=== PATIENT | male | born 1960 | race African-American/Black ===

== ENCOUNTER 2024-04-15 11:35 | Inpatient (IN) | payer OTHER ==
[2024-04-15 11:59] VITALS: BMI 22.4
[2024-04-15] MEDS ORDERED: methaDONE HCL 10 MG TABLET (FOR DETOX USE ONLY) PO PRN (12:10)
[2024-04-15] MEDS ORDERED: METHOCARBAMOL 500 MG TABLET PO PRN (12:17)
[2024-04-15] MEDS ORDERED: P-EPHED 60MG/TRIPROLIDI 2.5MG TABLET PO PRN (12:17)
[2024-04-15] MEDS ORDERED: IBUPROFEN 400 MG TABLET (FP) PO PRN (12:17)
[2024-04-15] MEDS ORDERED: guaiFENesin 600 MG TABLET.ER (FP) PO PRN (12:17)
[2024-04-15] MEDS ORDERED: BISMUTH SUBSALICYLATE 262 MG/15 ML BTL PO PRN (12:17)
[2024-04-15] MEDS ORDERED: MAG HYDROX/AL HYDROX/SIMETH 30 ML UNIT-DOSE CUP PO PRN (12:17)
[2024-04-15] MEDS ORDERED: ACETAMINOPHEN 325 MG TABLET (FP) PO PRN (12:17)
[2024-04-15] MEDS ORDERED: BENZOCAINE/MENTHOL (CHLORASEPTIC ) LOZENGE MM PRN (12:17)
[2024-04-15] MEDS ORDERED: MAGNESIUM HYDROX 2400MG/30ML ORAL SUSPENSION 30 ML CUP PO PRN (12:17)
[2024-04-15] MEDS ORDERED: IBUPROFEN 600 MG TABLET (FP) PO PRN (12:17)
[2024-04-15] MEDS ORDERED: LOPERAMIDE HCL 2 MG CAPSULE PO PRN (12:17)
[2024-04-15] MEDS ORDERED: ONDANSETRON *ODT* 4 MG TABLET SL PRN (12:17)
[2024-04-15] MEDS ORDERED: NALOXONE (NARCAN) HCL 4 MG/0.1 ML SPRAY NS PRN (12:17)
[2024-04-15] MEDS ORDERED: POLYETHYLENE GLYCOL (HEALTHYLAX) 3350 17 GM PACKET PO PRN (12:17)
[2024-04-15] MEDS ORDERED: BENZONATATE 200 MG CAPSULE PO PRN (12:17)
[2024-04-15] MEDS ORDERED: methaDONE HCL 10 MG TABLET (FOR DETOX USE ONLY) ONE (14:14)
[2024-04-15] MEDS: methaDONE HCL 10 MG TABLET (FOR DETOX USE ONLY) PO ONE (14:17)
[2024-04-15] MEDS ORDERED: cloNIDine HCL 0.1 MG TABLET PO PRN (15:48)
[2024-04-15] MEDS: ASPIRIN COATED 81 MG TABLET.EC PO SCH (15:57)
[2024-04-15] MEDS: cloNIDine HCL 0.1 MG TABLET PO PRN (15:58)
[2024-04-15] MEDS: DICYCLOMINE HCL 10 MG CAPSULE PO PRN (16:04)
[2024-04-15] MEDS: metFORMIN HCL 500 MG TABLET (FP) PO SCH (17:08)
[2024-04-15] MEDS: MAGNESIUM OXIDE 400 MG TABLET (FP) PO SCH (21:16)
[2024-04-15] MEDS: DOXAZOSIN MESYLATE 2 MG TABLET PO SCH (21:16)
[2024-04-15] MEDS: THIAMINE 100 MG TABLET PO SCH (21:17)
[2024-04-15] MEDS: MELATONIN 5 MG TABLETS PO SCH (21:17)
[2024-04-15] MEDS: DOCUSATE SODIUM 100 MG CAPSULE (FP) PO SCH (21:17)
[2024-04-15] MEDS: CARVEDILOL 6.25 MG TABLET (FP) PO SCH (21:17)
[2024-04-15] MEDS: levETIRAcetam 500 MG TABLET (FP) PO SCH (21:17)
[2024-04-15] MEDS ORDERED: LORATADINE 10 MG TABLET PO PRN (22:50)
[2024-04-15] MEDS ORDERED: TACROLIMUS 0.5 MG CAPSULE PO SCH (22:51)
[2024-04-15] MEDS: TACROLIMUS 0.5 MG CAPSULE PO SCH ×2 (23:06→23:09)
[2024-04-16 10:08] LABS: HEMOGLOBIN 14.3 GM/dL (11.7-16.9); MCH 29.6 pg (25.7-33.7); MEAN CELL VOLUME 87.1 fl (80-96); MEAN PLT VOLUME 7.6 fl (7.5-11.1); PLATELET COUNT 219 10^3/uL (134-434); RBC 4.83 M/mm3 (4.00-5.60); RDW 13.1 % (11.9-15.9); WHITE BLOOD COUNT 5.5 K/mm3 (4.0-10.0)
[2024-04-16] MEDS: PRENATAL VITAMINS W/ FOLIC ACID TABLET (FP) PO SCH (10:28)
[2024-04-16] MEDS: amLODIPine BESYLATE 10 MG TABLET (FP) PO SCH (10:29)
[2024-04-16 11:57] LABS: POTASSIUM 3.7 mmol/L (3.5-5.1)
[2024-04-16 12:04] LABS: ALBUMIN 3.3 g/dl (3.4-5.0); BLOOD UREA NITROGEN 19.9 mg/dL (7-18); CALCIUM 9.1 mg/dL (8.5-10.1)
[2024-04-16 12:07] LABS: CREATININE 1.3 mg/dL (0.55-1.3)
[2024-04-16 12:09] LABS: BILIRUBIN,TOTAL 1.8 mg/dL (0.2-1); TOT PROT 6.5 g/dl (6.4-8.2)
[2024-04-16] MEDS: TACROLIMUS ANHYDROUS PO SCH (14:31)
[2024-04-17] MEDS: methaDONE HCL 10 MG TABLET (FOR DETOX USE ONLY) PO ONE (10:07)
[2024-04-18] MEDS: NALOXONE (NYS OPIOID OVERDOSE PROGRAM) 4 MG/0.1 ML SPRAY NS SCH (09:53)
[2024-04-18 11:43] LABS: POTASSIUM 3.8 mmol/L (3.5-5.1)
[2024-04-18 11:45] LABS: BLOOD UREA NITROGEN 10.1 mg/dL (7-18)
[2024-04-18 11:48] LABS: CREATININE 1.1 mg/dL (0.55-1.3)
[2024-04-19 08:59] VITALS: RESP 18
[2024-04-19 13:01] VITALS: BP 103/65; PULSE 89; TEMP 97.8
== END 2024-04-19 13:08 | disposition other institution (70) | DRG 773 ==
LOC: YASAS 11:35 → Y3N 15:08
PROVIDERS: ADMIT Allergy & Immunology; ATTEND Allergy & Immunology
PROC: HZ2ZZZZ Detoxification Services for Substance Abuse Treatment (ICD-10-PCS; principal; 2024-04-15)
DX: F11.23 Opioid dependence with withdrawal (principal); F12.20 Cannabis dependence, uncomplicated; F19.24 Other psychoactive substance dependence with psychoactive substance-induced mood disorder; G40.909 Epilepsy, unspecified, not intractable, without status epilepticus; I25.10 Atherosclerotic heart disease of native coronary artery without angina pectoris; I10 Essential (primary) hypertension; E11.9 Type 2 diabetes mellitus without complications; Z79.84 Long term (current) use of oral hypoglycemic drugs; Z94.1 Heart transplant status; Z95.1 Presence of aortocoronary bypass graft; Z87.891 Personal history of nicotine dependence; Z88.0 Allergy status to penicillin
CPT/HCPCS: 36415; 80053; 80305; 80307; 82962; 85027; 86780; 93005; 93010